=== PATIENT | female | born 1995 | race Caucasian/White ===

== ENCOUNTER 2017-08-30 08:32 | Emergency (ER) | payer SELFPAY ==
[2017-08-30] MEDS ORDERED: LIDOCAINE 1% MPF 2 ML AMPULE ONE (09:00)
[2017-08-30] MEDS ORDERED: LIDOCAINE 1% 20 ML MDV ONE (09:01)
--- NOTE | 2017-08-30 09:31 | EDPHYS ---
Physician Documentation [facility] Name: Brenda Francis Age: 21 yrs Sex: Female : 1995 Arrival Date: 08/30/2017 Time: 08:36 Bed 18 Private MD: None, None ED Physician Tevin Latham HPI: 08/30 09:29 This 21 yrs old Female presents to ER via Ambulatory with complaints of pm1 Abscess. 09:29 The patient presents with an abscess of the left gluteal fold. Description: raised, pm1 tense. Onset: The symptoms/episode began/occurred 3 day(s) ago. Possible cause(s): unknown. Associated signs and symptoms: Pertinent negatives: discharge, drainage, fever. Modifying factors: the symptoms are alleviated by nothing, the symptoms are aggravated by sitting, squeezing the lesion and expressing the contents, touching. Severity of symptoms: in the emergency department the symptoms are actually worse. The patient has not experienced similar symptoms in the past. The patient has been recently seen at an urgent care, 3 days ago for the same complaint and told that she had cellulitis. Tetanus immunization given and prescribed Bactrim. No pain medications prescribed. Patient did not notice any discharge or drainage. 09:29 Reported onset [place] the beach. pm1 CONTINUING EDUCATION DEAN: 08:52 LMP 07/2017 iw Historical: - Allergies: 08:53 NKA; iw - Home Meds: 09:38 Bactrim DS Oral [Active]; iw - PMHx: 08:53 None; iw - PSHx: 08:53 None; iw - Immunization history:: Adult Immunizations not up to date, Last tetanus immunization: up to date. - Social history:: Smoking status: Patient uses tobacco products, smokes one-half pack cigarettes per day. - Ebola Screening: : Patient negative for fever greater than or equal to 101.5 degrees Fahrenheit, and additional compatible Ebola Virus Disease symptoms Patient denies exposure to infectious person Patient denies travel to an Ebola-affected area in the 21 days before illness onset No symptoms or risks identified at this time. ROS: 09:29 Constitutional: Negative for fever, chills, and weight loss, Eyes: Negative for injury, pm1 pain, redness, and discharge, ENT: Negative for injury, pain, and discharge, Neck: Negative for injury, pain, and swelling, Cardiovascular: Negative for chest pain, palpitations, and edema, Respiratory: Negative for shortness of breath, cough, wheezing, and pleuritic chest pain, Abdomen/GI: Negative for abdominal pain, nausea, vomiting, diarrhea, and constipation, Back: Negative for injury and pain, : Negative for injury, bleeding, discharge, and swelling, MS/Extremity: Negative for injury and deformity. 09:29 Neuro: Negative for headache, weakness, numbness, tingling, and seizure. : Skin: Positive for abscess, of the left gluteal fold. Exam: :29 Constitutional: This is a well developed, well nourished patient who is awake, alert, pm1 and in no acute distress. Head/Face: Normocephalic, atraumatic. Chest/axilla: Normal chest wall appearance and motion. Nontender with no deformity. No lesions are appreciated. Cardiovascular: Regular rate and rhythm with a normal S1 and S2. No gallops, murmurs, or rubs. Normal PMI, no JVD. No pulse deficits. Respiratory: Lungs have equal breath sounds bilaterally, clear to auscultation and percussion. No rales, rhonchi or wheezes noted. No increased work of breathing, no retractions or nasal flaring. Abdomen/GI: Soft, non-tender, with normal bowel sounds. No distension or tympany. No guarding or rebound. No evidence of tenderness throughout. Back: No spinal tenderness. No costovertebral tenderness. Full range of motion. :29 Skin: Appearance: normal except for affected area, abscess, that is small, approximately 2 cm(s), of the left gluteal fold, with fluctuance, with induration, 2 cm x 1 cm indurated area with fluctuance centrally. Small area of broken skin centrally without any drainage. No surrounding cellulitis or drainage. . Vital Signs: 08:52 BP 114 / 87; Pulse 81; Resp 16 S; Temp 97.5(TE); Pulse Ox 99% on R/A; Weight 50.8 kg; iw Height 5 ft. 3 in. (160.02 cm); Pain 6/10; 08:52 Body Mass Index 19.84 (50.80 kg, 160.02 cm) iw Procedures: :29 I \T\ D: Incision and drainage was performed for an abscess of the left left gluteal fold pm1 Prepped with Hibiclens . Anesthetized with 5 ml's 1% Lidocaine. Incised with #11 blade. Drained small amount purulent fluid. Loculations removed. Cultures obtained. Packed with iodoform gauze, Dressing: sterile 4x4 gauze, non-Adherent dressing, the patient tolerated the procedure well. MDM: 08:47 Patient medically screened. [facility] 09:29 Data reviewed: vital signs. Data interpreted: Pulse oximetry: on room air is 99 %. pm1 Interpretation: normal. Counseling: I had a detailed discussion with the patient and/or guardian regarding: the historical points, exam findings, and any diagnostic results supporting the discharge/admit diagnosis, the need for outpatient follow up, to return to the emergency department if symptoms worsen or persist or if there are any questions or concerns that arise at home. 08/30 09:27 Order name: Wound Culture pm1 08/30 09:27 Order name: I\T\D Setup; Complete Time: 09:29 pm1 Administered Medications: 09:10 Drug: Lidocaine (1 %) 20 ml Volume: 20 ml; Route: Infiltration; iw 09:27 CANCELLED (Physician Discretion; Up to date): Tetanus-Diphtheria Toxoid Adult 0.5 ml IM pm1 once 09:35 Drug: Tylenol #3 (300 mg-30 mg) 1 tablet Route: PO; iw 09:42 Follow up: Response: No adverse reaction iw Disposition: 08/31 09:06 Co-signature as Attending Physician, Tevin Latham MD I agree with the assessment and [facility] plan of care. Disposition: 08/30/17 09:31 Discharged to Home. Impression: Cutaneous abscess of left lower limb. - Condition is Stable. - Discharge Instructions: Abscess, Incision and Drainage. - Prescriptions for Doxycycline Hyclate 100 mg Oral Tablet - take 1 tablet by ORAL route every 12 hours; 20 tablet. Tylenol- Codeine #3 300-30 mg Oral Tablet - take 2 tablets by ORAL route every 6 hours As needed; 20 tablet. - Work release form, Medication Reconciliation Form, Thank You Letter, Antibiotic Education, Prescription Opioid Use form. - Follow up: Emergency Department; When: As needed; Reason: Worsening of condition. Follow up: Maik Mckay MD; When: 2 - 3 days; Reason: Recheck today's complaints, Continuance of care, Re-evaluation by your physician. - Problem is new. - Symptoms have improved. Signatures: Dispatcher [employer] EDTevin Austin, Raquel Perkins MD, cha, RN RN iw Gilbert Collins, RESIDENTIAL SOLAR CONSULTANT RESIDENTIAL SOLAR CONSULTANT pm1 Corrections: (The following items were deleted from the chart) 08/30 09:27 09:27 Tetanus-Diphtheria Toxoid Adult 0.5 ml IM once ordered. pm1 pm1 09:38 08:53 Home Meds: uknown antibiotic; iw 09:41 09:31 08/30/2017 09:31 Discharged to Home. Impression: Cutaneous abscess of left lower iw limb. Condition is Stable. Forms are Medication Reconciliation Form, Thank You Letter, Antibiotic Education, Prescription Opioid Use. Follow up: Emergency Department; When: As needed; Reason: Worsening of condition. Follow up: Maik Mckay; When: 2 - 3 days; Reason: Recheck today's complaints, Continuance of care, Re-evaluation by your physician. Problem is new. Symptoms have improved. pm1
--- NOTE | 2017-08-30 09:31 | ER ---
Nurse's Notes [facility] Name: Brenda Francis Age: 21 yrs Sex: Female : 1995 Arrival Date: 08/30/2017 Time: 08:36 Bed 18 Private MD: None, None Diagnosis: Cutaneous abscess of left lower limb Presentation: 08/30 08:50 Presenting complaint: Patient states: has had abscess to left gluteal fold since iw morning, went to urgent care and was dx with cellulitis, prescribed abx and given tetanus shot, is having increasing pain and tenderness to area. Transition of care: patient was not received from another setting of care. Onset of symptoms was August 27, 2017. Risk Assessment: Do you want to hurt yourself or someone else? Patient reports no desire to harm self or others. Initial Sepsis Screen: Does the patient meet any 2 criteria? No. Patient's initial sepsis screen is negative. Does the patient have a suspected source of infection? No. Patient's initial sepsis screen is negative. Care prior to arrival: None. 08:50 Method Of Arrival: Ambulatory iw 08:50 Acuity: JODY 4 iw MEAT HOSTESS: 08:52 LMP 07/2017 iw Historical: - Allergies: 08:53 NKA; iw - Home Meds: 09:38 Bactrim DS Oral [Active]; iw - PMHx: 08:53 None; iw - PSHx: 08:53 None; iw - Immunization history:: Adult Immunizations not up to date, Last tetanus immunization: up to date. - Social history:: Smoking status: Patient uses tobacco products, smokes one-half pack cigarettes per day. - Ebola Screening: : Patient negative for fever greater than or equal to 101.5 degrees Fahrenheit, and additional compatible Ebola Virus Disease symptoms Patient denies exposure to infectious person Patient denies travel to an Ebola-affected area in the 21 days before illness onset No symptoms or risks identified at this time. Screenin:58 Abuse screen: Denies threats or abuse. Denies injuries from another. Nutritional iw screening: No deficits noted. Tuberculosis screening: No symptoms or risk factors identified. Fall Risk None identified. Assessment: 08:49 General: Appears in no apparent distress. Behavior is calm, cooperative. Pain: iw Complains of pain in left gluteal fold Pain currently is 6 out of 10 on a pain scale. Neuro: Level of Consciousness is awake, alert, obeys commands, Oriented to person, place, time, situation, Moves all extremities. Full function. Cardiovascular: Patient's skin is warm and dry. Respiratory: Respiratory effort is even, unlabored. GI: No signs and/or symptoms were reported involving the gastrointestinal system. Derm: Skin is normal, Abscess located on left gluteal fold is nickel sized, has no drainage, is red. Musculoskeletal: Range of motion: intact in all extremities. Vital Signs: 08:52 BP 114 / 87; Pulse 81; Resp 16 S; Temp 97.5(TE); Pulse Ox 99% on R/A; Weight 50.8 kg; iw Height 5 ft. 3 in. (160.02 cm); Pain 6/10; 08:52 Body Mass Index 19.84 (50.80 kg, 160.02 cm) iw ED Course: 08:36 Patient arrived in ED. mr 08:36 None, None is Private Physician. mr 08:41 Gustabo Lloyd LVN is Primary Nurse. em 08:43 Gilbert Collins NP is PHCP. pm1 08:44 Tevin Latham MD is Attending Physician. pm1 08:50 Patient has correct armband on for positive identification. iw 08:51 Triage completed. iw 08:52 Arm band placed on. iw 08:59 Primary Nurse role handed off by Gustabo Lloyd LVN iw 08:59 Raquel Packer, RN is Primary Nurse. iw 09:29 Assist provider with I \T\ D: of an abscess on left gluteal fold Set up I\T\D tray. iw Performed by Gilbert Collins RUBBER MOULDING MACHINE OPERATOR Culture sent to lab. Dressing with 4X4s, tape Patient tolerated well. 09:30 Maik Mckay MD is Referral Physician. pm1 09:30 Patient did not have IV access during this emergency room visit. iw 09:36 Wound Culture Sent. ag Administered Medications: 09:10 Drug: Lidocaine (1 %) 20 ml Volume: 20 ml; Route: Infiltration; iw 09:27 CANCELLED (Physician Discretion; Up to date): Tetanus-Diphtheria Toxoid Adult 0.5 ml IM pm1 once 09:35 Drug: Tylenol #3 (300 mg-30 mg) 1 tablet Route: PO; iw 09:42 Follow up: Response: No adverse reaction Outcome: 09:31 Discharge ordered by . pm1 09:41 Discharged to home ambulatory, with friend. iw 09:41 Condition: good 09:41 Discharge instructions given to patient, Instructed on discharge instructions, follow up and referral plans. medication usage, Demonstrated understanding of instructions, follow-up care, medications, Prescriptions given X 2. 09:41 Patient left the ED. iw Addendum: 09/03/2017 07:27 Addendum: Culture Results: Positive wound culture. No further action required. Bacteria i w sensitive to prescribed antibiotic. Signatures: Kylie Burgos mr Lloyd, Gustabo, REFLEXOLOGIST REFLEXOLOGIST Raquel Myers, RN RN iw Tash Salas Patrick, RUBBER MOULDING MACHINE OPERATOR RUBBER MOULDING MACHINE OPERATOR pm1 Corrections: (The following items were deleted from the chart) 08/30 09:38 08:53 Home Meds: uknown antibiotic; [facility]
[2017-08-30] MEDS ORDERED: CODEINE 30MG/APAP 300MG TAB ONE (09:34)
== END 2017-08-30 09:41 | disposition home or self-care (01) ==
LOC: ER 08:32
PROC: 0H98XZZ Drainage of Buttock Skin, External Approach (ICD-10-PCS; principal; 2017-08-30)
DX: L02.31 Cutaneous abscess of buttock (principal); F17.210 Nicotine dependence, cigarettes, uncomplicated
CPT/HCPCS: 87070; 87077; 87186; 87205; 99284; J2001

== ENCOUNTER 2022-10-08 15:10 | Emergency (ER) | payer SELFPAY ==
[2022-10-08] MEDS ORDERED: METHYLPREDNISOLONE 125 MG INJ ONE (15:26)
[2022-10-08] MEDS ORDERED: EPINEPHRINE/PF 1 MG/ML AMP ONE (15:26)
[2022-10-08] MEDS ORDERED: FAMOTIDINE 20 MG/2 ML VIAL IV ONE (15:26)
[2022-10-08] MEDS ORDERED: NA CHLORIDE 0.9% 1,000 ML ONE (15:26)
[2022-10-08] MEDS ORDERED: DIPHENHYDRAMINE 50 MG/ML VIAL ONE (15:26)
--- NOTE | 2022-10-08 19:44 | EDPHYS ---
Physician Documentation [facility] Name: Brenda Francis Age: 26 yrs Sex: Female : 1995 Arrival Date: 10/08/2022 Time: 15:10 Bed 10 Private MD: ED Physician Jovanny Duran HPI: 10/08 16:22 This 26 yrs old Female presents to ER via Ambulatory with complaints of Breathing rt Difficulty, ALLERGIC REACTION. 16:22 Patient presents to the ED following a bee sting. The patient immediately had full body rt hives with itching as well as wheezing, difficulty breathing as well as reported swelling to the airway with voice changes. This is never happened to her previously. Denies other acute complaints at this time. Symptoms are severe in severity, no other aggravating or alleviating factors. Historical: - Allergies: 15:29 NKA; ph - Immunization history:: Adult Immunizations unknown. - Social history:: Smoking status: unknown. - Family history:: not pertinent. ROS: 16:22 Constitutional: Negative for fever, chills, and weight loss, Abdomen/GI: Negative for rt abdominal pain, nausea, vomiting, diarrhea, and constipation, MS/Extremity: Negative for injury and deformity, Neuro: Negative for headache, weakness, numbness, tingling, and seizure, Psych: Negative for depression, anxiety, suicide ideation, homicidal ideation, and hallucinations. 16:22 Respiratory: Positive for shortness of breath, wheezing. 16:22 Skin: Positive for Urticaria, hives. Exam: 16:22 Constitutional: This is a well developed, well nourished patient who is awake, alert, rt and in no acute distress. Head/Face: Normocephalic, atraumatic. Chest/axilla: Normal chest wall appearance and motion. Nontender with no deformity. No lesions are appreciated. Cardiovascular: Regular rate and rhythm with a normal S1 and S2. No gallops, murmurs, or rubs. Normal PMI, no JVD. No pulse deficits. Abdomen/GI: Soft, non-tender, with normal bowel sounds. No distension or tympany. No guarding or rebound. No evidence of tenderness throughout. MS/ Extremity: Pulses equal, no cyanosis. Neurovascular intact. Full, normal range of motion. Neuro: Awake and alert, GCS 15, oriented to person, place, time, and situation. Cranial nerves II-XII grossly intact. Motor strength 5/5 in all extremities. Sensory grossly intact. Cerebellar exam normal. Normal gait. Psych: Awake, alert, with orientation to person, place and time. Behavior, mood, and affect are within normal limits. 16:22 ENT: Mild oropharyngeal edema, no erythema, somewhat hoarse voice.. 16:22 Respiratory: Wheezes heard on all lung zarco, mild respiratory distress. 16:22 Skin: Generalized hives noted.. Vital Signs: 15:26 BP 133 / 92; Pulse 114; Resp 22; Temp 98; Pulse Ox 97% on R/A; ph 16:30 BP 100 / 53; Pulse 82; Resp 16; Pulse Ox 99% on R/A; cm10 17:30 BP 103 / 76; Pulse 66; Resp 16; Pulse Ox 100% on R/A; cm10 18:30 BP 101 / 67; Pulse 61; Resp 16; Pulse Ox 100% on R/A; cm10 MDM: 15:19 Patient medically screened. rt 16:28 Differential diagnosis: Anaphylaxis, reactive airway disease, urticaria. Data reviewed: rt vital signs, nurses notes. Test considered but Not performed: X-ray: Patient has clear inciting event, bee sting, has clear anaphylaxis. X-ray, labs not likely to benefit the patient, not indicated. Counseling: I had a detailed discussion with the patient and/or guardian regarding: the historical points, exam findings, and any diagnostic results supporting the discharge/admit diagnosis, the need for outpatient follow up, to return to the emergency department if symptoms worsen or persist or if there are any questions or concerns that arise at home. Response to treatment: the patient's symptoms have resolved after treatment. Administered Medications: 15:30 Drug: NS 0.9% IV 1000 ml Route: IV; Rate: 1 bolus; Site: right antecubital; ph 17:32 Follow up: Response: No adverse reaction; IV Status: Completed infusion; IV Intake: ll1 1000ml 15:30 Drug: EPINEPHrine 1:1000 Sub-Q 1:1,000 0.3 ml Route: Sub-Q; Site: right thigh; ph 17:32 Follow up: Response: No adverse reaction ll1 15:31 Drug: diphenhydrAMINE IVP 50 mg Route: IVP; Site: right antecubital; ph 17:31 Follow up: Response: No adverse reaction; RASS: Drowsy (-1) ll1 15:31 Drug: Famotidine IVP 20 mg Route: IVP; Site: right antecubital; ph 17:31 Follow up: Response: No adverse reaction ll1 15:31 Drug: MethylPrednisoLONE IVP 125 mg Route: IVP; Site: right antecubital; ph 17:31 Follow up: Response: No adverse reaction ll1 Disposition Summary: 10/08/22 19:43 Discharge Ordered Location: Home cp Problem: new cp Symptoms: are resolved cp Condition: Stable cp Diagnosis - Anaphylaxis due to bee sting cp Followup: rt - With: Private Physician - When: 2 - 3 days - Reason: Followup: rt - With: Emergency Department - When: - Reason: Worsening of condition Discharge Instructions: - Discharge Summary Sheet rt - Anaphylactic Reaction, Adult rt Forms: - Medication Reconciliation Form cp - Thank You Letter cp - Antibiotic Education cp - Prescription Opioid Use cp - Patient Portal Instructions cp Prescriptions: - Pepcid 20 mg Oral Tablet - take 1 tablet by ORAL route every 12 hours for 5 days; 10 tablet; Refills: 0, cp Product Selection Permitted - EpiPen 2-Adal - inject 1 pen by INTRAMUSCULAR route one time; 2 pen; Refills: 0, Product rt Selection Permitted - Prednisone 20 mg Oral Tablet - take 2 tablets by ORAL route once daily for 5 days; 10 tablet; Refills: 0, rt Product Selection Permitted Signatures: Amisha Jimenez, RN RN ph Tevin Munroe PA PA cp Jovanny Duran MD MD rt Sarah Mensah RN ll1
--- NOTE | 2022-10-08 19:44 | ER ---
Nurse's Notes [facility] Name: Brenda Francis Age: 26 yrs Sex: Female : 1995 Arrival Date: 10/08/2022 Time: 15:10 Bed 10 Private MD: Diagnosis: Anaphylaxis due to bee sting Presentation: 10/08 15:26 Chief complaint: Patient states: Stung by wasp x 1 on L breast, began experiencing ph hives, itching all over and difficulty breathing, pt noted to be wheezing, coughing, voice hoarse, hives to entire body. Coronavirus screen: Vaccine status: Patient reports being unvaccinated. Ebola Screen: No symptoms or risks identified at this time. Initial Sepsis Screen: Does the patient meet any 2 criteria? No. Patient's initial sepsis screen is negative. Does the patient have a suspected source of infection? No. Patient's initial sepsis screen is negative. Risk Assessment: Do you want to hurt yourself or someone else? Patient reports no desire to harm self or others. Onset of symptoms was October 08, 2022. 15:26 Method Of Arrival: Ambulatory ph 15:26 Acuity: JODY 2 ph Triage Assessment: 16:03 General:. Pain: Denies pain. cm10 Historical: - Allergies: 15:29 NKA; ph - Immunization history:: Adult Immunizations unknown. - Social history:: Smoking status: unknown. - Family history:: not pertinent. Screenin:29 [facility] ED Fall Risk Assessment (Adult) History of falling in the last 3 months, ph including since admission No falls in past 3 months (0 pts) Confusion or Disorientation No (0 pts) Intoxicated or Sedated No (0 pts) Impaired Gait No (0 pts) Mobility Assist Device Used No (0 pt) Altered Elimination No (0 pt) Score/Fall Risk Level 0 - 2 = Low Risk Oriented to surroundings, Maintained a safe environment. Abuse screen: Denies threats or abuse. Denies injuries from another. Nutritional screening: No deficits noted. Tuberculosis screening: No symptoms or risk factors identified. Assessment: 16:06 Reassessment: Patient states feeling better. Patient states symptoms have improved. cm10 General: Appears in no apparent distress. comfortable, Behavior is calm, cooperative. Neuro: No deficits noted. Level of Consciousness is awake, alert, Oriented to person, place, time, situation. Respiratory: No deficits noted. Airway is patent Respiratory effort is even, unlabored, Respiratory pattern is regular, symmetrical, Breath sounds are clear bilaterally. 17:32 Reassessment: No changes from previously documented assessment. Patient and/or family ll1 updated on plan of care and expected duration. Pain level reassessed. Patient is alert, oriented x 3, equal unlabored respirations, skin warm/dry/pink. Vital Signs: 15:26 BP 133 / 92; Pulse 114; Resp 22; Temp 98; Pulse Ox 97% on R/A; ph 16:30 BP 100 / 53; Pulse 82; Resp 16; Pulse Ox 99% on R/A; cm10 17:30 BP 103 / 76; Pulse 66; Resp 16; Pulse Ox 100% on R/A; cm10 18:30 BP 101 / 67; Pulse 61; Resp 16; Pulse Ox 100% on R/A; cm10 ED Course: 15:12 Patient arrived in ED. mg5 15:14 Amisha Jimenez RN is Primary Nurse. ph 15:19 Jovanny Duran MD is Attending Physician. rt 15:29 Triage completed. ph 15:29 Arm band placed on Patient placed in a hallway bed, on monitor worker, on pulse ph oximetry. 15:30 Inserted saline lock: 20 gauge in right antecubital area, using aseptic technique. ph 16:03 Patient has correct armband on for positive identification. Bed in low position. Call cm10 light in reach. Side rails up X2. Provided Education on: N/A. 19:54 No provider procedures requiring assistance completed. IV discontinued, intact, cm10 bleeding controlled, No redness/swelling at site. Pressure dressing applied. Administered Medications: 15:30 Drug: NS 0.9% IV 1000 ml Route: IV; Rate: 1 bolus; Site: right antecubital; ph 17:32 Follow up: Response: No adverse reaction; IV Status: Completed infusion; IV Intake: ll1 1000ml 15:30 Drug: EPINEPHrine 1:1000 Sub-Q 1:1,000 0.3 ml Route: Sub-Q; Site: right thigh; ph 17:32 Follow up: Response: No adverse reaction ll1 15:31 Drug: diphenhydrAMINE IVP 50 mg Route: IVP; Site: right antecubital; ph 17:31 Follow up: Response: No adverse reaction; RASS: Drowsy (-1) ll1 15:31 Drug: Famotidine IVP 20 mg Route: IVP; Site: right antecubital; ph 17:31 Follow up: Response: No adverse reaction ll1 15:31 Drug: MethylPrednisoLONE IVP 125 mg Route: IVP; Site: right antecubital; ph 17:31 Follow up: Response: No adverse reaction ll1 Medication: 16:03 VIS not applicable for this client. cm10 Intake: 17:32 IV: 1000ml; Total: 1000ml. ll1 Outcome: 19:43 Discharge ordered by MD. cp 19:55 Discharged to home ambulatory, with family. cm10 19:55 Condition: good 19:55 Discharge instructions given to patient, Instructed on discharge instructions, follow up and referral plans. medication usage, Demonstrated understanding of instructions, follow-up care, medications, Prescriptions given X 3. 19:55 Patient left the ED. cm10 Signatures: Amisha Jimenez RN RN ph Tevin Munroe PA PA cp Sarah Mensah RN RN ll1 Jovanny Duran MD MD rt Mandie Felix RN RN cm10 Veronica Poon mg5
[2022-10-08 20:35] VITALS: TEMP 98
[2022-10-08 20:47] VITALS: O2SAT 100
[2022-10-08 20:48] VITALS: BP 101/67
== END 2022-10-08 19:55 | disposition home or self-care (01) ==
LOC: ER 15:10
DX: T63.441A Toxic effect of venom of bees, accidental (unintentional), initial encounter (principal)
CPT/HCPCS: J0171; J1200; J2930; J7030